=== PATIENT | male | born 1965 | race Caucasian/White ===

== ENCOUNTER → 2020-06-05 11:16 | Outpatient (CLI) | payer OTHER, SELFPAY ==
--- NOTE | ~2020-06-05 | XR_ITS ---
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 Tibiotalar joint osteoarthritis. Os tibiale externum, normal variant. Mild plantar and prominent posterior calcaneal enthesopathy. No fracture, dislocation, periosteal reaction or bone destruction. IMPRESSION: Osteophyte is at the tibiotalar and first metatarsophalangeal joints Calcaneal enthesopathy Reviewed, dictated and finalized at location B. IMPRESSION: Osteophyte is at the tibiotalar and first metatarsophalangeal joint s Calcaneal enthesopathy
--- NOTE | ~2020-06-05 | XR_ITS ---
XR knee RT min 4V DATE: 06/05/2020 12:00 INDICATION: Gait disturbance following stroke. Knee pain. TECHNIQUE: 4 views COMPARISON: None FINDINGS: There is an approximately 1.5 x 4.4 mm calcified or ossified loose body within the lateral compartment joint space of the knee. There is hypertrophic change of the tibial spines. There is moderate periarticular spurring of the patella. Medial and lateral compartment joint spaces appear well preserved. No fracture or dislocation is evident. There is suprapatellar bursa distention consistent with modera tely large joint effusion. No periosteal reaction or bone destruction. IMPRESSION: Moderately large suprapatellar knee joint effusion 1.5 x 4.4 mm calcified or ossified loose body within the lateral compartment Mild osteoarthritic change including moderate periarticular spurring of the patella Reviewed, dictated and finalized at location B. IMPRESSION: Moderately large suprapatellar knee joint effusion 1.5 x 4.4 mm calcified or ossified loose body within the lateral compartment Mild osteoarthritic change including moderate periarticular spurring of the pat vonnie
== END ==
PROVIDERS: PCP Emergency Medicine; Visit Provider Emergency Medicine
DX: M77.32 Calcaneal spur, left foot (principal); M25.461 Effusion, right knee; M17.11 Unilateral primary osteoarthritis, right knee
CPT/HCPCS: 73564; 73630

== ENCOUNTER 2020-09-02 12:24 | Emergency (ER) | payer OTHER, SELFPAY ==
--- NOTE | ~2020-09-02 | US_ITS ---
EXAMINATION: US venous doppler LE RT DATE: 09/02/2020 13:10 INDICATION: Right lower limb pain. TECHNIQUE: Grayscale ultrasound images without and with compression and Doppler ultrasound images of the right lower extremity veins were obtained. COMPARISON: None. FINDINGS: The visualized portions of right common femoral vein, profunda (deep) femoral vein, femoral vein, pop liteal vein, peroneal veins, posterior tibial veins, and greater saphenous vein outflow are patent. IMPRESSION: 1. No deep venous thrombosis. Reviewed, dictated and finalized at location A.
[2020-09-02 12:26] VITALS: BP 151/95; PULSE 84; RESP 12; TEMP 37.2; O2SAT 97
[2020-09-02 12:58] LABS: Basophils Percent Auto 0.5 % (0.2-1.2); Eosinophils Absolute Auto 0.2 K/mm3 (0-0.3); Hematocrit 45.7 % (42.0-52.0); Hemoglobin 15.4 g/dL (14.0-18.0); Immature Granulocyte Absolute 0.04 K/mm3 (0.00-0.031); Immature Granulocyte Percent A 0.5 % (0-0.5); Lymphocytes Absolute Auto 1.77 K/mm3 (0.9-3.2); Lymphocytes Percent Auto 20.7 % (18.3-44.2); Mean Corpuscular HGB Conc 33.7 g/dl (32-36); Mean Corpuscular Hemoglobin 29.4 pg (26-34); Mean Corpuscular Volume 87.4 fl (80-100); Mean Platelet Volume 9.4 fl (7.4-10.4); Monocytes Absolute Auto 0.6 K/mm3 (0.1-0.6); Monocytes Percent Auto 7.4 % (2.6-8.5); Neutrophils Absolute Auto 5.9 K/mm3 (1.3-6.7); Neutrophils Percent Auto 68.9 % (45.5-73.1); Platelet Count Result 236 k/mm3 (150-375); Red Blood Count 5.23 M/mm3 (4.6-6.20); Red Cell Distribution Width 13.4 % (11.5-14.5); White Blood Count 8.6 K/mm3 (4.5-10.0)
[2020-09-02 13:10] LABS: Alanine Aminotransferase 27 U/L (4-50); Albumin Level 4.5 g/dL (3.5-5.1); Alkaline Phosphatase 64 U/L (38-126); Anion Gap 10 mmol/L (8-16); Aspartate Amino Transferase 27 U/L (17-59); Bilirubin,Total 1.2 mg/dL (0.2-1.3); Blood Urea Nitrogen 14 mg/dL (9-20); Carbon Dioxide 25 mmol/L (22-30); Chloride 103 mmol/L (98-107); Estimated CRCL calculation 126 ml/min; Estimated Glomerular Filt Rate > 60; Glucose 99 mg/dL (75-110); Potassium 3.8 mmol/L (3.4-5.0); Sodium 138 mmol/L (137-145)
[2020-09-02 13:11] LABS: INR 0.9; Prothrombin Time 12.3 Seconds (11.1-14.7)
--- NOTE | 2020-09-02 13:11 | ED.EXTPRO ---
HPI - Extremity Problem General Chief complaint: Extremity Problem,Nontraumatic Stated complaint: LEG PAIN Time Seen by Provider: 09/02/20 12:25 Source: patient Mode of arrival: EMS Limitations: no limitations History of Present Illness HPI Narrative: 55 years old white male presents with pain and swelling of the right lower leg posteriorly started few days ago. Patient denies any trauma, fever, chills, nausea, vomiting, chest pain, shortness of breath, headac, or similar symptoms. History of CABG and CVA, Currently patient on aspirin and Plavix. Related Data Allergies Allergy/AdvReac Type Severity Reaction Status Date / Time No Known Allergies Allergy Verified 09/30/14 15:23 Review of Systems Review of Systems: Narrative: General appearance: Well-developed, well-nourished Skin: Normal color Head: Normocephalic, nontraumatic Eyes: Clear conjunctiva ENT: Oropharynx normal, ears normal, nose normal Neck: Supple, nontender Chest and respiratory: Airway patent, no respiratory distress, no accessory muscle use Heart: Regular rate/rhythm Abdomen: Soft, nontender, no organomegaly, quiet bowel sounds Vascular: Normal peripheral pulses, normal capillary refill. Musculoskeletal: Right lower leg pain Neurologic: Alert and oriented ?3, ENTRY LEVEL PROJECT COORDINATOR is normal as tested, no gross motor deficit PMFSH Past Medical History Medical History (Updated 09/02/20 @ 13:24 by Latrice Vergara MD) Bronchitis CAD (coronary artery disease) History of angina History of heart attack History of irregular heartbeat Hypercholesteremia Hypertension Pneumonia Sleep apnea Surgical History Surgical History History of angioplasty Hx of cardiac cath with 1-2 stents placed. S/P CABG x 2 2010 Family History Family History Father Acute myocardial infarction 48 years old, of [place] Mother , from complications related to smoking and morbid obesity COPD (chronic obstructive pulmonary disease) Morbid obesity Social History Social History Social History: He lives in [place] with his Partner Umer who he has been with for the last 18 years. 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 Smoking status: Never smoker Alcohol intake: current Drinks per week: 6 Substance use: never Gender identity (if verbalized by the patient): Male Spiritual care concerns: No Agree to blood products: Yes Exam Narrative: Exam Narrative: General appearance: Well-developed, well-nourished Skin: Normal color Head: Normocephalic, nontraumatic Eyes: Clear conjunctiva ENT: Oropharynx normal, ears normal, nose normal Neck: Supple, nontender Chest and respiratory: Airway patent, no respiratory distress, no accessory muscle use Heart: Regular rate/rhythm Abdomen: Soft, nontender, no organomegaly, quiet bowel sounds Vascular: Normal peripheral pulses, normal capillary refill. Musculoskeletal: Right lower leg exam shows diffuse tenderness posteriorly, firm in consistency, no erythema, no rash, no edema, positive Homans' sign Neurologic: Alert and oriented ?3, ENTRY LEVEL PROJECT COORDINATOR is normal as tested, no gross motor deficit Course Course Emergency Course: Stable Vital Signs Vital signs: Vital Signs Temperature 37.2 C
[2020-09-02 13:12] LABS: Partial Thromboplastin Time 35.7 SECONDS (22.3-36.8)
== END 2020-09-02 13:48 | disposition home or self-care (01) ==
PROVIDERS: Emergency Provider Emergency Medicine; PCP Emergency Medicine
DX: M79.661 Pain in right lower leg (principal); I25.10 Atherosclerotic heart disease of native coronary artery without angina pectoris; Z95.1 Presence of aortocoronary bypass graft; Z86.73 Personal history of transient ischemic attack (TIA), and cerebral infarction without residual deficits; I25.2 Old myocardial infarction; E78.00 Pure hypercholesterolemia, unspecified; G47.30 Sleep apnea, unspecified; Z95.5 Presence of coronary angioplasty implant and graft
CPT/HCPCS: 36415; 80053; 85025; 85610; 85730; 93971; 99284

== ENCOUNTER 2020-09-07 11:17 | Outpatient (CLI) | payer OTHER, SELFPAY ==
--- NOTE | ~2020-09-07 | US_ITS ---
EXAMINATION: US art doppler w press LE BI DATE: 09/07/2020 12:08 INDICATION: Right lower limb pain and swelling. TECHNIQUE: Segmental pressures and plethysmographic and Doppler waveforms of the brachial and lower e xtremity arteries were obtained. COMPARISON: Neck CTA 09/27/2019 FINDINGS: Right and left brachial artery pressures of 168 mm Hg and 146 mm Hg, respectively, are concordant (no rmal difference <= 30 mmHg). The right thigh, below-knee, and ankle pressures could not be measured due to inability to cuff occlu de the arteries. The right ankle-brachial index (SHAYNE) is nondiagnostic (normal >= 0.9-1.0). The right great toe-brachial index (TBI) is 1.08 (normal >= 0.65). Arterial Doppler waveforms are at least tri phasic from common femoral artery to dorsalis pedis and biphasic in posterior tibial artery. The left thigh, below-knee, and ankle pressures could not be measured due to inability to cuff occlud e the arteries. The left SHAYNE is nondiagnostic. The left TBI is 1.13. Arterial Doppler waveforms are a t least triphasic from common femoral artery to dorsalis pedis and biphasic in posterior tibial arter y. IMPRESSION: 1. Normal TBIs and nondiagnostic ABIs. No significant arterial occlusive disease. Reviewed, dictated and finalized at location A. IMPRESSION: 1. Normal TBIs and nondiagnostic ABIs. No significant arterial occlusive diseas e.
== END 2020-09-07 11:18 | disposition home or self-care (01) ==
PROVIDERS: PCP Emergency Medicine; Visit Provider Emergency Medicine
DX: M79.89 Other specified soft tissue disorders (principal)
CPT/HCPCS: 93923

== ENCOUNTER → 2022-09-19 12:00 | Outpatient (CLI) | payer OTHER, SELFPAY ==
--- NOTE | ~2022-09-19 | XR_ITS ---
EXAMINATION: XR chest 2V Exam Date/Time: 09/19/2022 12:05 FACILITY REHAB DIRECTOR HISTORY: COUGH X 1 WEEK Comparison: 09/27/2019. RESULT: Lines, tubes, and devices: Multiple fractured median sternotomy wires, in stable position. Mediastin al vascular clips. Lungs and pleura: Clear. Cardiomediastinal silhouette: Stable. Other: No acute osseous or upper abdominal finding. IMPRESSION: No acute cardiopulmonary process. Reviewed, dictated and finalized at location K. LITY REHAB DIRECTOR
== END ==
LOC: EXPCRAD 12:03
PROVIDERS: PCP Emergency Medicine; Visit Provider Emergency Medicine
DX: R05.9 Cough, unspecified (principal)
CPT/HCPCS: 71046